=== PATIENT | female | born 1960 | race Caucasian/White ===

== ENCOUNTER 2021-10-01 12:31 | Outpatient (CLI) | payer OTHER, BC, SELFPAY ==
--- NOTE | ~2021-10-01 | CT_ITS ---
EXAMINATION: CT lung screening DATE: 10/01/2021 12:51 INDICATION: Personal history of tobacco dependence. Lung cancer screening. TECHNIQUE: Computed tomography (CT) of the chest was performed without intravenous contrast. The dose -length product was 63.46 mGy-cm. Automated exposure control and iterative reconstruction technique w ere employed. COMPARISON: None FINDINGS: Heart size normal. No significant pleural or pericardial effusion. Mildly enlarged precarin al lymph node measuring 11 mm short axis, likely reactive. There is atherosclerosis of the aorta and coronary arteries. The upper abdomen is unremarkable. There is mild emphysema. No endobronchial lesio ns. No pneumothorax. No focal airspace consolidation. There is focal right pleural calcified nodule r ight lower lobe, suggesting chronic granulomatous disease. There is a 2 mm right upper lobe nodule, i mage 25. There are a few additional 1-2 mm nodules in both lungs, most prevalent in the upper lungs. There is a calcified granuloma in the left upper lobe. No focal lytic or blastic lesions. IMPRESSION: 1. Lung-RADS category 2: Benign appearance or behavior. Continue annual screening with noncontrast lo w-dose chest CT in 12 months. Reviewed, dictated and finalized at location B. IMPRESSION: 1. Lung-RADS category 2: Benign appearance or behavior. Continue annual screeni ng with noncontrast low-dose chest CT in 12 months.
== END 2021-10-01 12:32 | disposition home or self-care (01) ==
LOC: ANHIMG 12:37
PROVIDERS: PCP Internal Medicine; Visit Provider Clinical Nurse Specialist
DX: Z12.2 Encounter for screening for malignant neoplasm of respiratory organs (principal); Z72.0 Tobacco use
CPT/HCPCS: 71271

== ENCOUNTER 2021-11-21 00:34 | Day surgery (SDC) | payer OTHER, BC, SELFPAY ==
[2021-11-05 13:16] VITALS: BMI 19.1
[2021-11-21 06:34] VITALS: BP 136/82; PULSE 97; RESP 18; TEMP 36; O2SAT 97
[2021-11-21] MEDS: LACTATED RINGERS 1,000 ML 150 ML IV CONT (06:41)
--- NOTE | 2021-11-21 07:03 | P.PNAN_ITS ---
Anes - Initial Pre Proc Eval Procedure: Operation Date: 11/21/21 07:30 Proposed Procedures p Screening Colonoscopy - Daniel Bray MD Date/Time: 11/21/21 07:03 Surgeon: Daniel Bray MD Pre Op Diagnosis: neoplasm screening Patient Data Age: 61 Gender: F Height: 1.73 m Weight: 55.8 kg Last Vital Signs Temp 36.0 C L 11/21/21 06:34 Pulse 97 11/21/21 06:34 Resp 18 11/21/21 06:34 BP 136/82 11/21/21 06:34 Pulse Ox 97 11/21/21 06:34 Allergies Allergy/AdvReac Type Severity Reaction Status Date / Time No Known Allergies Allergy Verified 11/21/21 06:31 Home Medications Medication Instructions Recorded Confirmed Type aspirin 81 mg tablet,delayed 81 mg PO DAILY 12/06/20 11/05/21 History release pseudoephedrine HCl 30 mg tablet 30 mg PO Q4-6H PRN 12/19/20 11/05/21 History albuterol sulfate 90 mcg/actuation 2 puff INHALATION Q4-6H PRN #8.5 g 09/10/21 11/05/21 Rx aerosol inhaler Patient hx anesthesia problems: none Family hx anesthesia problems: none Results Review: All pre-operative results and documents have been reviewed as part of the pre-operative evaluation. [facility] Past Medical History Medical History Heart murmur Surgical History Surgical History H/O tubal ligation 1988 History of open heart surgery Valve repair 06/22/2018 Family History Family History Mother Patient's mother is in good health Sibling Patient's brother is in good health Father Cerebrovascular accident Social History Social History Smoking packs per day: 1 Smoking cigarettes per day: 20.0 Years smoked: 30 Smoking pack-years: 30.00 Smoking status: Current some day smoker Tobacco type: cigarettes Alcohol intake: current Alcohol use details: socially Substance use: never Substance use type: does not use Living arrangements: with family Spiritual care concerns: No Anes - Eval Final PreProcedure Day of Procedure 11/21/21 07:03 Patient weight: normal Heart: regular rate and rhythm Lungs: decreased breath sounds Airway: Mallampati scale Neurological: alert and oriented Last oral intake: >/= 8 hours ASA classification: III Emergent: no Anesthetic plan: proceed Anesthesia type and monitoring: general GIVS and standard monitoring Results Review: All pre-operative results and documents have been reviewed as part of the pre-operative evaluation. Informed Consent: The patient's anesthetic plan and its attendant risks and benefits were discussed with the patient/family/POA. Questions were solicited and answers provided to the satisfaction of the patient/family/POA.
--- NOTE | 2021-11-21 07:20 | PM.HPGS ---
History of Present Illness History of Present Illness Consent: Risks, benefits, and alternatives have been discussed and questions answered. Patient agrees to proceed with procedure. Chief complaint: neoplasm screening Narrative: Brenda Powell is a 61 year old female here for first screening colonoscopy Review of Systems Constitutional: Constitutional: Denies headache(s) and Denies weakness Eyes: Eyes: Denies blurry vision ENT: Reports Normal hearing present, Denies headache(s) and Denies neck pain Cardiovascular: Cardiovascular: Denies chest pain and Denies dyspnea Respiratory: Respiratory: Denies dyspnea Gastrointestinal: Gastrointestinal: Reports no additional gastrointestinal complaints Genitourinary: Genitourinary: Denies dysuria Musculoskeletal: Musculoskeletal: Denies neck pain Integumentary/Breasts: Skin/Breast: Denies dry skin Neurologic: Reports Normal hearing present, Denies headache(s) and Denies weakness Psychiatric: Psychiatric: Denies anxiety Endocrine: Endocrine: Denies change in body appearance Hematologic/Lymphatic: Hematologic/Lymphatic: Denies easy bleeding Allergic/Immunologic: Allergic/Immunologic: Denies urticaria PMFSH Past Medical History Medical History Heart murmur Surgical History Surgical History H/O tubal ligation 1988 History of open heart surgery Valve repair 06/22/2018 Family History Family History Mother Patient's mother is in good health Sibling Patient's brother is in good health Father Cerebrovascular accident Social History Social History Smoking packs per day: 1 Smoking cigarettes per day: 20.0 Years smoked: 30 Smoking pack-years: 30.00 Smoking status: Current some day smoker Tobacco type: cigarettes Alcohol intake: current Alcohol use details: socially Substance use: never Substance use type: does not use Living arrangements: with family Spiritual care concerns: No Meds Home Medications and Allergies Home Medications Medication Instructions Recorded Confirmed Type aspirin 81 mg tablet,delayed 81 mg PO DAILY 12/06/20 11/05/21 History release pseudoephedrine HCl 30 mg tablet 30 mg PO Q4-6H PRN 12/19/20 11/05/21 History albuterol sulfate 90 mcg/actuation 2 puff INHALATION Q4-6H PRN #8.5 g 09/10/21 11/05/21 Rx aerosol inhaler Allergies Allergy/AdvReac Type Severity Reaction Status Date / Time No Known Allergies Allergy Verified 11/21/21 06:31 Vital Signs Vital Signs - 24 hr 11/21/21 06:34 Temperature 96.8 F L Pulse Rate 97 Respiratory Rate 18 Blood Pressure 136/82 Pulse Oximetry 97 Exam Const: General: comfortable and no acute distress HENMT: General nose exam: Normal nares present Eyes: General: appearance normal, both eyes and all related structures Neck: Neck: no JVD Resp: Auscultation: clear to auscultation bilaterally Cardio: Rate: regular rate Rhythm: regular rhythm GI: Inspection: non-distended GI Palp: Yes Soft to palpation Skin: General skin exam: normal color Neuro: General: gait normal Speech: normal speech Extrem: General: normal to inspection Psych: Mental Status: mental status grossly normal Assessment and Plan Assessment and plan (1) Screening for colon cancer: Code(s): Z12.11 - Encounter for screening for malignant neoplasm of colon Status: Acute Assessment and Plan: colonoscopy
[2021-11-21 07:47] VITALS: BP 91/60; PULSE 100; RESP 23; O2SAT 100
[2021-11-21 07:57] VITALS: BP 113/77; PULSE 100; RESP 21; O2SAT 100
[2021-11-21 08:07] VITALS: BP 131/84; PULSE 71; RESP 19; O2SAT 100
== END 2021-11-21 08:16 | disposition home or self-care (01) ==
PROVIDERS: PCP Internal Medicine; Visit Provider Internal Medicine Gastroenterology
PROC: 0DJD8ZZ Inspection of Lower Intestinal Tract, Via Natural or Artificial Opening Endoscopic (ICD-10-PCS; CPT 45378; principal; 2021-11-21 07:30)
DX: Z12.11 Encounter for screening for malignant neoplasm of colon (principal); K63.5 Polyp of colon; K64.8 Other hemorrhoids; R01.1 Cardiac murmur, unspecified; F17.210 Nicotine dependence, cigarettes, uncomplicated
CPT/HCPCS: 45385; 88305; J2704; J7120

== ENCOUNTER → 2022-01-12 15:59 | Outpatient (CLI) | payer OTHER, SELFPAY ==
--- NOTE | ~2022-01-12 | XR_ITS ---
XR knee RT 3V 01/12/2022 16:37 Indication: Right knee pain Procedure: 3 views right knee Comparison: No prior studies for comparison. Findings: No fracture, subluxation or dislocation. No significant joint effusion. No joint effusion. No foreign bodies. Impression: 1: No significant bone or joint abnormality. Reviewed, dictated and finalized at location A. Impression: 1: No significant bone or joint abnormality.
--- NOTE | ~2022-01-12 | XR_ITS ---
XR lumbar spine 2-3V DATE: 01/12/2022 16:37 INDICATION: Back pain TECHNIQUE: AP, lateral, coned lateral lumbosacral views COMPARISON: None FINDINGS: There is diffuse osteopenia. There is minimal levoscoliosis of the lumbar spine. Normal alignment of the lumbar spine. No fracture or bone destruction or spondylolisthesis. The lumba r pedicles are intact. Mild to moderate degenerative disc disease at L1-2, L2, L3-4. Mild degenerative disc disease at L4-5. The sacroiliac joints appear normal. Abdominal aortic and iliac arterial calcifications. IMPRESSION: Osteopenia Minimal levoscoliosis Multilevel degenerative disc disease Reviewed, dictated and finalized at location B.
== END ==
PROVIDERS: PCP Internal Medicine; Visit Provider Clinical Nurse Specialist
DX: M25.561 Pain in right knee (principal); M85.88 Other specified disorders of bone density and structure, other site; M51.36 Other intervertebral disc degeneration, lumbar region
CPT/HCPCS: 72100; 73562

== ENCOUNTER → 2022-06-18 14:55 | Outpatient (CLI) | payer OTHER, SELFPAY ==
--- NOTE | ~2022-06-18 | DEXA_ITS ---
Bone Density Report Name: CHARBEL GAO Age: 61 Sex: Female Ethnicity: White Date of : 1960 Indication: postmenopausal; screening for osteoporosis; Referring Provider: Cori Pepe Study: Bone densitometry was performed. Exam Date: June 18, 2022 Accession number: [id number] Bone Density: Region BMD T-score Z-score Classification AP Spine (L1-L4) 0.948 -0.9 0.5 Normal Femoral Neck (Left) 0.555 -2.7 -1.4 Osteoporosis Total Hip (Left) 0.737 -1.7 -0.8 Osteopenia Femoral Neck (Right) 0.545 -2.7 -1.5 Osteoporosis Total Hip (Right) 0.736 -1.7 -0.8 Osteopenia Total Hip Mean 0.737 -1.7 -0.8 Osteopenia World Health Organization criteria for BMD impression classify patients as: Normal (T-score at or above -1.0), Osteopenia (T-score between -1.0 and -2.5), or Osteoporosis (T-score at or below -2.5). 10-year Fracture Risk: FRAX not reported because: Some T-score for Spine Total or Hip Total or Femoral Neck at or below -2.5 Clinical Information Provided by Patient: Has 3 or more alcoholic drinks per day Has used the following medications: Vitamin D Patient maximum height was 68.2 Menopause Age: 55 No regular weight bearing exercise Does not regularly consume dairy products Drinks caffeinated beverages Onset of menses at age 16 Number of children 3 Impression: The patient has osteoporosis, based on the Left Femoral Neck T-score. The patient has risk factors, including: excessive alcohol use. Discussion: INCREASED RISK OF FRACTURE. BONE DENSITY IS UNDESIRABLY LOW AT ONE OR MORE SKELETAL SITES, CONSISTENT WITH POSTMENOPAUSAL OSTEOPOROSIS. This patient's lowest T-score meets the World Health Organization's (WHO) criteria for osteoporosis at one or more sites (T-score -2.5 or below). In untreated patients, the risk of osteoporotic fracture increases approximately two-fold for each 1.0 SD decrease in T-score. Low bone density is not the only risk factor for fracture; also consider factors such as patient's age, frailty or poor health, risk of falling, risk of injury, previous osteoporotic fracture, family history of osteoporosis, cigarette smoking, low body weight, etc. Not everyone with low bone mineral density has osteoporosis; osteomalacia and other metabolic bone disorders should also be considered. Patients who have osteoporosis should be evaluated for specific diseases and conditions (secondary causes) that may cause or contribute to bone loss. The [place] [employer]ocr[employer] (AACE) and National Osteoporosis Foundation (NOF) recommend pharmacologic intervention for all postmenopausal women whose T-score is in this range. The patient should follow a healthful lifestyle (good nutrition with adequate calcium and vitamin D, and appropriate weight-bearing exercise). Follow-Up: Consider a re
== END ==
PROVIDERS: PCP Internal Medicine; Visit Provider Clinical Nurse Specialist
DX: Z78.0 Asymptomatic menopausal state (principal); M81.0 Age-related osteoporosis without current pathological fracture; M85.852 Other specified disorders of bone density and structure, left thigh; M85.851 Other specified disorders of bone density and structure, right thigh
CPT/HCPCS: 77080

== ENCOUNTER 2022-10-08 15:36 | Outpatient (CLI) | payer OTHER, SELFPAY ==
--- NOTE | ~2022-10-08 | CT_ITS ---
EXAMINATION: CT lung screening DATE: 10/08/2022 15:57 INDICATION: CT lung screening TECHNIQUE: Computed tomography (CT) of the chest was performed without intravenous contrast. Addition al 3D reconstructions utilizing coronal maximum intensity projection (MIP) were performed. Automated exposure control and iterative reconstruction technique were employed. The dose-length product was 88 .46 mGy-cm. COMPARISON: None FINDINGS: Mild emphysema. Again seen are small calcified nodules at the bilateral lower lobes along with calcif ied right hilar and mediastinal lymph nodes consistent with old granulomatous disease. No interval ch kenny in a few tiny scattered bilateral pulmonary nodules, the largest measuring 2 mm in the right upp er lobe on image 31. No evident central endobronchial lesions. No pneumonia, pulmonary edema, pleural effusion or pneumothorax. Heart size is normal. Mitral annular repair. No pericardial effusion. Thor acic aorta is normal in caliber. No pathologically enlarged thoracic lymphadenopathy. Visualized uppe r abdomen is unremarkable. Mild thoracic spondylosis. IMPRESSION: 1. Lung-RADS category 2: Benign appearance or behavior. Continue annual screening with noncontrast lo w-dose chest CT in 12 months. Reviewed, dictated and finalized at location A. IMPRESSION: 1. Lung-RADS category 2: Benign appearance or behavior. Continue annual screeni ng with noncontrast low-dose chest CT in 12 months.
== END 2022-10-08 15:37 | disposition home or self-care (01) ==
PROVIDERS: PCP Internal Medicine; Visit Provider Clinical Nurse Specialist
DX: Z12.2 Encounter for screening for malignant neoplasm of respiratory organs (principal); F17.210 Nicotine dependence, cigarettes, uncomplicated
CPT/HCPCS: 71271

== ENCOUNTER 2022-10-28 16:42 | Outpatient (CLI) | payer OTHER, SELFPAY ==
--- NOTE | ~2022-10-28 | MR_ITS ---
MRI of the right foot Clinical History: Swelling, stress fracture Technique: Sagittal T1-weighted and STIR images, axial proton-density and proton-density fat-sat imag es, and coronal T1-weighted and proton-density fat-sat images were acquired.. Findings: There is amorphous marrow edema in the cuboid bone, without distinct fracture line. There i s additional probable reactive marrow edema in the medial cuneiform, probably related to degenerative change at the first tarsometatarsal joint. Remaining bone marrow signals are essentially unremarkabl e. No joint effusion evident. Flexor and extensor tendons are intact. Intrinsic musculature of the foot is unremarkable. No mass le orin or fluid collection evident. No evidence for intermetatarsal bursitis or Huber's neuroma. Plant ar fascia is intact. IMPRESSION: Amorphous marrow edema in the cuboid bone. Findings could reflect stress response or bone contusion. No definite fracture line seen. Probable reactive marrow edema in the medial cuneiform related to degenerative change at the first ta rsometatarsal joint. Reviewed, dictated and finalized at location . IMPRESSION: Amorphous marrow edema in the cuboid bone. Findings could reflect stress respon se or bone contusion. No definite fracture line seen. Probable reactive marrow edema in the medial cuneiform related to degenerative change at the first tarsometatarsal joint.
== END 2022-10-28 16:43 | disposition home or self-care (01) ==
PROVIDERS: PCP Internal Medicine; Visit Provider Clinical Nurse Specialist
DX: M79.671 Pain in right foot (principal); M79.89 Other specified soft tissue disorders
CPT/HCPCS: 73718

== ENCOUNTER 2022-11-03 15:48 | Outpatient (CLI) | payer OTHER, SELFPAY ==
--- NOTE | ~2022-11-03 | US_ITS ---
EXAMINATION:US venous doppler LE RT INDICATION:Right leg pain TECHNIQUE: Multiple grayscale, color flow and Doppler images of the right lower extremity deep venous systems were obtained and reviewed. COMPARISON:06/30/2018 FINDINGS: The common femoral, superficial femoral and popliteal veins demonstrate normal respiratory variation, augmentation and compressibility. Color flow is also seen within the posterior tibial, pe roneal, greater saphenous and profunda veins. IMPRESSION: 1: No lower extremity deep venous thrombosis. Reviewed, dictated and finalized at location A.
== END 2022-11-03 15:49 | disposition home or self-care (01) ==
PROVIDERS: PCP Internal Medicine; Visit Provider Clinical Nurse Specialist
DX: M79.671 Pain in right foot (principal); M79.89 Other specified soft tissue disorders
CPT/HCPCS: 93971

== ENCOUNTER 2023-11-12 14:52 | Outpatient (CLI) | payer OTHER, SELFPAY ==
--- NOTE | ~2023-11-12 | CT_ITS ---
EXAMINATION: CT lung screening DATE: 11/12/2023 15:21 INDICATION: Personal history of nicotine dependence TECHNIQUE: Computed tomography (CT) of the chest was performed without intravenous contrast. The dose -length product was 77.49 mGy-cm. Automated exposure control and iterative reconstruction technique w ere employed. COMPARISON: CT dated 10/08/2022 FINDINGS: No significant pleural or pericardial effusion. There is evidence of chronic granulomatous disease. Mild atherosclerosis. Heart size normal. No thoracic lymphadenopathy. Upper abdomen is unrem arkable. There is emphysema. No endobronchial lesions. No focal airspace disease. No pneumothorax. Th ere are a few small pulmonary nodules measuring 2 mm or less. No new masses or suspicious pulmonary n odules. IMPRESSION: 1. Lung-RADS category 2: Benign appearance or behavior. Continue annual screening with noncontrast lo w-dose chest CT in 12 months. Reviewed, dictated and finalized at location B. IMPRESSION: 1. Lung-RADS category 2: Benign appearance or behavior. Continue annual screeni ng with noncontrast low-dose chest CT in 12 months.
== END 2023-11-12 14:53 | disposition home or self-care (01) ==
LOC: ANHIMG 14:53
PROVIDERS: PCP Internal Medicine; Visit Provider Clinical Nurse Specialist
DX: Z12.2 Encounter for screening for malignant neoplasm of respiratory organs (principal); Z87.891 Personal history of nicotine dependence
CPT/HCPCS: 71271

== ENCOUNTER 2024-06-21 14:26 | Outpatient (CLI) | payer OTHER, SELFPAY ==
--- NOTE | ~2024-06-21 | DEXA_ITS ---
Bone Density Report Name: CHARBEL GAO Age: 63 Sex: Female Ethnicity: White Date of : 1960 Indication: postmenopausal; screening for osteoporosis; inflammatory bowel disease; Referring Provider: MARCY BRAR Study: Bone densitometry was performed. Exam Date: June 21, 2024 Accession number: [id number] Bone Density: Region BMD T-score Z-score Classification AP Spine(L1-L4) 0.931 -1.1 0.5 Osteopenia Femoral Neck (Left) 0.514 -3.0 -1.7 Osteoporosis Total Hip (Left) 0.707 -1.9 -0.9 Osteopenia Femoral Neck (Right) 0.562 -2.6 -1.2 Osteoporosis Total Hip (Right) 0.752 -1.6 -0.5 Osteopenia Total Hip Mean 0.730 -1.8 -0.7 Osteopenia World Health Organization criteria for BMD impression classify patients as: Normal (T-score at or above -1.0), Osteopenia (T-score between -1.0 and -2.5), or Osteoporosis (T-score at or below -2.5). 10-year Fracture Risk: FRAX not reported because: Some T-score for Spine Total or Hip Total or Femoral Neck at or below -2.5 Treated for osteoporosis Clinical Information Provided by Patient: Is being treated for osteoporosis Has used the following medications: Fosamax (i.e. alendronate), Vitamin D Has the following medical conditions: Inflammatory bowel diseases Patient maximum height was 68.2 No regular weight bearing exercise Does not regularly consume dairy products Drinks caffeinated beverages Onset of menses at age 16 Number of children 3 Impression: The patient has osteoporosis, based on the Left Femoral Neck T-score. Discussion: It is important to ask patients whether they are taking their medications and to encourage continued and appropriate compliance with their osteoporosis therapies to reduce fracture risk. It is also important to review their risk factors and encourage appropriate calcium and vitamin D intakes, exercise, fall prevention and other lifestyle measures. Follow-Up: Consider a repeat BMD and Vertebral Fracture Assessment (VFA) exam in 2 years or sooner if medically necessary, to reassess this patient's status. Reported by: MAVIS on 06/21/2024 2:56:00 PM. Reviewed, dictated and finalized at location AYonatan GUZMAN
== END 2024-06-21 14:27 | disposition home or self-care (01) ==
LOC: ANHIMG 14:27
PROVIDERS: PCP Internal Medicine; Visit Provider Clinical Nurse Specialist
DX: M81.0 Age-related osteoporosis without current pathological fracture (principal); M85.89 Other specified disorders of bone density and structure, multiple sites; Z78.0 Asymptomatic menopausal state
CPT/HCPCS: 77080

== ENCOUNTER 2024-10-04 08:42 | Emergency (ER) | payer OTHER, SELFPAY ==
[2024-10-04 08:52] VITALS: BP 98/68; PULSE 99; RESP 19; TEMP 36.9; O2SAT 99
[2024-10-04 08:58] VITALS: PULSE 99; RESP 19; O2SAT 99
--- NOTE | 2024-10-04 09:27 | ED.URI ---
HPI - URI/Sore Throat General Chief Complaint: Upper Respiratory Infection Stated Complaint: Sore Throat/Cough Time Seen by Provider: 10/04/24 09:18 Source: patient and RN notes reviewed Mode of arrival: ambulatory Limitations: no limitations History of Present Illness HPI Narrative: Patient presents today with a 4 to five-day history of sore throat, nasal congestion, has been worse over the past 2 days. Denies fever. She does report some occasional shortness of breath with exertion. History of COPD. She has been taking DayQuil with mild relief. States she used to be on some inhalers for her COPD but they have run out/ Related Data Home Medications ?Medication ?Instructions ?Recorded ?Confirmed ?Last Taken ?Type aspirin 81 mg tablet,delayed 81 mg PO DAILY 12/06/20 07/10/24 11/20/21 History release (Adult Aspirin Regimen) cholecalciferol (vitamin D3) 50 50 mcg PO DAILY 07/10/24 07/10/24 Unknown History mcg (2,000 unit) capsule pravastatin 40 mg tablet 40 mg PO DAILY 07/10/24 07/10/24 Unknown History Allergies Allergy/AdvReac Type Severity Reaction Status Date / Time No Known Allergies Allergy Verified 10/04/24 08:43 Review of Systems Review of Systems: CONSTITUTIONAL: Denies body aches, fever, chills, or sweats. EYES: Denies visual changes, redness, or discharge. ENT: Denies rhinorrhea,or otalgia.+ congestion, sore throat CARDIOVASCULAR: Denies chest pain, palpitations, or edema. RESPIRATORY: + cough, shortness of breath GASTROINTESTINAL: Denies abdominal pain, nausea, vomiting, or diarrhea. GENITOURINARY: Denies dysuria or hematuria. SKIN: Denies rash, itching, or wounds. MUSCULOSKELETAL: Denies back pain, joint pain, or myalgia. NEUROLOGIC: Denies headache, numbness, tingling, or weakness. PSYCH: Denies depression or anxiety. [facility] Past Medical History Medical History Foot swelling Hospital discharge follow-up Right foot pain Screening mammogram, encounter for Breast calcifications [id number] bilateral Heart murmur Surgical History Surgical History History of breast biopsy (~2006) left breast bx History of mitral valve repair (06/22/18) H/O tubal ligation (~1988) Family History Family History Mother Patient's mother is in good health Sibling Patient's brother is in good health Father Cerebrovascular accident Social History Social History Smoking packs per day: 1 Smoking cigarettes per day: 20.0 Years smoked: 30 Smoking pack-years: 30.00 Smoking status: Former smoker Tobacco type: e-cigarettes/vaping Second hand tobacco smoke exposure: No Alcohol intake: current Drinks per week: 7 Alcohol use details: socially Substance use: never Substance use type: does not use Do You Feel Safe in your Home?: Yes Lack of Transportation: No Lack of Food: Never True Current Housing: I Have Housing Concerned About Future Housing: No Difficulty Paying Gas/Electric Bills: No Difficulty Paying for Meds: No Currently Unemployed: No Education: Trade/Vocational Certificate Difficulty w/ Childcare or Family Care: No Living arrangements: with family Additional living arrangements comments: Occupation/Education: occupation 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 Please see nursing chart for further information. There is no relevant family history pertinent to the presenting complaint Exam Narrative: GENERAL: Mildly ill-appearing, well-nourished, and in no acute distress. HEAD: Normocephalic, atraumatic. EYES: EOMI. No redness or drainage. Conjunctivae normal. ENT: Mucous membranes pink and moist. Nares congested with rhinorrhea. TMs normal bilaterally. Throat normal. Uvula midline. NECK: Normal AROM. Supple. No lymphadenopathy. CHEST: No respiratory distress. Clear to auscultation. HEART: Regular rate and rhythm. No murmur appreciated. EXTREMITIES: Normal range of motion. No edema. SKIN: Warm, dry, no rash. Capillary refill normal. Normal skin turgor. NEURO: No focal deficits. Alert and oriented x3. Gait steady. PSYCH: Normal affect. No signs of depression or anxiety. Course Course Level of Care: Express Care Visit Vital Signs Vital signs: Vital Signs Temperature 98.4 F 10/04/24 08:52 Pulse Rate 99 10/04/24 08:52 Respiratory Rate 19 10/04/24 08:52 Blood Pressure 98/68 L 10/04/24 08:52 Pulse Oximetry 99 10/04/24 08:52 Oxygen Delivery Room Air 10/04/24 08:52 Temperature 98.4 F 10/04/24 08:52 Pulse Rate 99 10/04/24 08:58 Respiratory Rate 19 10/04/24 08:58 Blood Pressure 98/68 L 10/04/24 08:52 Pulse Oximetry 99 10/04/24 08:58 Oxygen Delivery Room Air 10/04/24 08:52 Reviewed MDM - URI/Sore Throat MDM Narrative Medical decision making narrative: Rapid strep negative. Symptoms likely viral in etiology. Discussed [id number] medication use and duration of illness. Prescriptions for prednisone and an albuterol inhaler as well as Tessalon Perle sent to pharmacy. Anticipatory guidance given. ED precautions given. Differential Diagnosis Differential diagnosis: Likely upper respiratory infection, sinusitis, viral infection, pharyngitis and other (Strep throat, COPD exacerbation) Lab Data Attestation: I reviewed the patient's lab results. Lab results narrative: Rapid strep negative Critical Care Time Critical Care Time Critical Care Time: No Discharge Plan Discharge Clinical Impression: COPD exacerbation Upper respiratory infection Qualifiers: URI type: unspecified URI Qualified Code(s): J06.9 - Acute upper respiratory infection, unspecified Patient Disposition: Home, Self-Care Condition: Stable Instructions: Upper Respiratory Infection (DC) Additional Instructions: Your rapid strep swab was negative today at [facility]. Your symptoms are likely due to a viral illness, which is not treated with antibiotics. Viral symptoms can be present for up to 7-10 days. Take Tylenol or ibuprofen for fever or pain. Take the prednisone, tessalon perles and use the albuterol inhaler as prescribed. Rest and stay hydrated. Follow up with your PCP in 5 days if symptoms are not improving. Go to the ER immediately if you have any difficulty breathing or swallowing. Patient Language: Slovenian Prescriptions: New albuterol sulfate 90 mcg/actuation HFA aerosol inhaler 2 inh inhalation Q4-6H PRN (Reason: shortness of breath or wheezing) Qty: 8.5 0RF (DME) [employer] MDI Spacer Spacer See Rx Instructions .ROUTE .MEDSUPPLY Qty: 1 0RF Rx Instructions: As directed benzonatate 200 mg capsule 200 mg PO TID PRN (Reason: cough) Qty: 20 0RF prednisone 50 mg tablet 50 mg PO DAILY 5 Days Qty: 5 0RF No Action pravastatin 40 mg tablet 40 mg PO DAILY cholecalciferol (vitamin D3) 50 mcg (2,000 unit) capsule 50 mcg PO DAILY aspirin [Adult Aspirin Regimen] 81 mg tablet,delayed release (DR/EC) 81 mg PO DAILY alendronate [Fosamax] 70 mg tablet 70 mg PO WEEKLY Qty: 12 0RF Follow-up/Referrals: Cori Pepe, [facility] [Primary Care Provider] - Stand Alone Forms: Work/School Release IP Time of Disposition: 09:35
[2024-10-04 10:03] LABS: EDSTREPNEGPOS1 Negative (Negative)
== END 2024-10-04 09:50 | disposition home or self-care (01) ==
PROVIDERS: Emergency Provider Nurse Practitioner; PCP Clinical Nurse Specialist
DX: J44.1 Chronic obstructive pulmonary disease with (acute) exacerbation (principal); J06.9 Acute upper respiratory infection, unspecified; F17.290 Nicotine dependence, other tobacco product, uncomplicated; R01.1 Cardiac murmur, unspecified; Z79.82 Long term (current) use of aspirin
CPT/HCPCS: 87880; 99213; G0463